=== PATIENT | male | born 1950 | race Caucasian/White ===

== ENCOUNTER 2019-07-04 08:54 | Inpatient (IN) ==
[2019-07-04] MEDS ORDERED: 0.9 % Sodium Chloride 1,000 ML ONE (09:24)
[2019-07-04] MEDS ORDERED: *HR* Midazolam HCl 2 MG/2 ML VIAL ONE (09:24)
[2019-07-04] MEDS ORDERED: *HR* FentaNYL (PF) 100 MCG/2 ML VIAL ONE (09:24)
[2019-07-04] MEDS ORDERED: Tirofiban 12.5 MG/250ML 12.5 MG/250 ML BAG ONE (09:24)
[2019-07-04] MEDS ORDERED: Heparin 1,000 UNITS/500 mL 500 ML ONE (09:25)
[2019-07-04] MEDS ORDERED: *HR* Heparin 10,000 UNIT/10 ML VIAL ONE (09:25)
[2019-07-04] MEDS ORDERED: Iopamidol 125 ML INFUS..BTL ONE (09:25)
[2019-07-04] MEDS ORDERED: Nitroglycerin 1,000 MCG/10 ML VIAL IV ONE (09:25)
--- NOTE | 2019-07-04 09:30 | Pre-Sedation Evaluation ---
Pre-sedation evaluation - Pre-sedation checklist Date of procedure: 07/04/19 Procedure: [facility] Recent Vitals: vs as documented in emr H&P (including ROS) documented in medical record: Yes Previous reaction to sedatives/anesthetics: No Dietary Status: unknown Airway Assessment: Patient can open mouth completely, TMJ function normal ASA Classification *see protocol: CLASS V-Morbid complications, operation only hope of survival, [id number] to any of the above to indicate emergent Plan of Care: Pt appropriate candidate for procedure/moderate/conscious sedation, Risks/benefits of procedure/sedation discussed w/ patient/family, If not NPO; Risk of intake outweiged by necessity to perform procedure Cardiac Registry (Cardio Only) - Functional Capacity Functional Capacity: >=4 METS with symptoms - Clincal Frailty Scale Clinical Frailty Scale: Managing Well
--- NOTE | 2019-07-04 10:16 | Cardiology History & Physical ---
Date of Encounter: 07/04/19 Time of Encounter: 09:40 Assessment and Plan (1) ST elevation myocardial infarction (STEMI) Status: Acute Anterior current of injury. STEMI. A/R/B of emergent [facility] dw patient including 1% chance of recurrent MT//CVA/CABG/bleeding/ALANNA/contrast reaction. Pt aware and agreeable with plan. EF assessment to be completed. DAPT. Heparin. The assessment and plan as outlined above was discussed with the patient and/or family members who expressed understanding and agreement. All questions were answered. Qualifiers: Involved coronary artery: LAD coronary artery Qualified Code(s): I21.02 - ST elevation (STEMI) myocardial infarction involving left anterior descending coronary artery (2) HTN (hypertension) Status: Acute antiHTN The assessment and plan as outlined above was discussed with the patient and/or family members who expressed understanding and agreement. All questions were answered. Qualifiers: Hypertension type: essential hypertension Qualified Code(s): I10 - Essential (primary) hypertension History of Present Illness Chief complaint: chest pain HPI: Mr. Pearson is a 68 year old male with no previous cardiac history presents with 10/10 chest pain, retrosternal, starting approximately 5am arrived at [place] with finding of anterior STEMI. Aspirin, NTG, brilinta given but no significant change in symptoms. It was associated with mild dyspnea. He was transferred here emergently. Past Med Surg Social Fam HX - Past Medical History Medical history: diabetes, hypertension Psychiatric history: no psych history - Past Surgical History Surgical History: cataract - Social History Smoking Status: Never smoker Smokeless Tobacco Status: No Alcohol use: occasionally Drug use: none Medications and Allergies Allergy/AdvReac Type Severity Reaction Status Date / Time No Known Allergies Allergy Verified 07/04/19 08:43 All Systems Review: The remainder of the systems were reviewed and are negative - Constitutional Constitutional: no chills, no fever(s) - EENT Eyes: no blurred vision, no loss of vision Nose, mouth and throat: no mouth pain, no odynophagia - Cardiovascular Cardiovascular: chest pain at rest, chest pain with exertion - Respiratory Respiratory: no hemoptysis, no wheezing - Gastrointestinal Gastrointestinal: no hematemesis, no hematochezia - Genitourinary Genitourinary: no hematuria, no nocturia - Musculoskeletal Musculoskeletal: no abnormal gait, no arthralgias - Integumentary Integumentary: no rash, no unusual bruising - Neurological Neurological: no syncope, no tingling - Psychiatric Psychiatric: no hallucinations, no panic attacks - Hematological/Lymphatic Hematologic/Lymphatic: no easy bleeding, no easy bruising Physical Examination General: Conversant, Other (mild distress) HEENT: Atraumatic Neck: No JVD Cardiac: Reg Rate and Rhythm Lungs: Normal Breath Sounds Neuro: Alert and responsive Abdomen: Soft Skin: No rashes noted on visualized skin Musculoskeletal: No Chest Wall Tenderness Extremities: No Edema Results - EKG Interpretation EKG results cardiology: sinus rhythm (anterior current of injury)
[2019-07-04] MEDS ORDERED: Morphine Sulfate 2 MG/ML SYRINGE IVP PRN (10:20)
[2019-07-04] MEDS ORDERED: Ondansetron 4 MG/2 ML VIAL IVP PRN (10:20)
[2019-07-04] MEDS ORDERED: Dextrose Gel 15 GM/37.5 ML TUBE PO PRN ×2 (10:26)
[2019-07-04] MEDS ORDERED: *HR* Dextrose 50 % in Water (Syg) 50 ML SYRINGE IVP PRN (10:26)
[2019-07-04] MEDS ORDERED: D5% in Water 1,000 ML IVC PRN (10:26)
[2019-07-04] MEDS ORDERED: Tirofiban 12.5 MG/250ML 12.5 MG/250 ML BAG IVC SCH (10:30)
--- NOTE | 2019-07-04 10:36 | Invasive Diagnostic Lab Proc ---
Name: Everton Pearson V Date of Study: 07/04/2019 Date: 1950 Ht: 72.8in Medical Record#: [id number] Age: 68 Wt: 220.46lb Gender: Male BSA: 2.24 Order #: [id number] BMI: 29.22 Physicians Procedure Physician: Leonard Joshi MD, FACC Referring MD: Referring MD: Staff Name Position Time In Annika Washington RT Monitor 09:37 AM Cecilia Benjamin RT (R) Scrub 09:37 AM Christopher Luna RN Feeder Tender 09:37 AM Indications Indication STEMI Procedures Performed Procedure L HRT ARTERY/VENTRICLE ANGIO PRQ CARD REVASC NM 1 VSL Pre-Procedure Checklist Informed consent is complete signed and on chart. H&P is on chart. ID band is on and ID verified with patient. Patient NPO for procedure The procedure was described for the patient and questions were answered. Blood Pressure: 142/90 ECG is on chart. Rhythm: STEMI Plan of Care Patient will tolerate the procedure without complications. Adequate level of comfort will be maintained. Hemodynamics will remain stable Patient will recover from procedure without complications. Respiratory function will be maintained. Cardiac rhythm will remain stable. Patient temperature will be maintained. Patient and/or family have verbalized understanding of the procedure. Patient Education Chief Complaint/Reason for Test: Cardiac Cath Developmental Category: Geriatric (65+ years) Developmentally Appropriate for Age: Yes Learning Barriers: None Education Needs: Procedure Education Method: Verbal Information Taught: Cardiac Cath Educational Evaluation: Able to repeat information Intravenous Access Time IV Size Location DC'd Fluid/Drip Rate Units RN 09:31 AM 18g 1 1/4" Patent On Arrival Lt Antecubital 09:32 AM 18g 1 1/4" Patent On Arrival Rt Antecubital Allergies No Known Allergies Vital Signs Time BP (mmHg) HR (bpm) O2 Sat. RR (bpm) LOC 09:41 AM 142 / 90 78 100 % 18 5 = Fully awake and oriented or at pre-proc level 09:39 AM / % 4 = Oriented but drowsy 09:54 AM / % 4 = Oriented but drowsy 09:41 AM 142 / 90 81 % 11 09:45 AM 131 / 78 77 100 % 17 09:50 AM 123 / 77 127 97 % 23 09:55 AM 111 / 70 85 98 % 25 10:00 AM 116 / 66 73 98 % 16 10:05 AM 115 / 64 72 99 % 29 10:10 AM 112 / 65 72 100 % 15 Procedural Medications Time Medication Dose Units Method Given By 09:38 AM Oxygen 2 L/min nasal cannula Christopher Luna RN 09:42 AM Versed 2 mg Intravenous Christopher Luna RN 09:42 AM Fentanyl 50 mcg Intravenous Christopher Luna RN 09:45 AM Lidocaine 2% 1 ml Subcutaneous Leonard Joshi MD, FACC 09:46 AM Heparin 2000 units Nitroglycerin 200 mcg Verapamil 2.5 mg Intraarterial Leonard Joshi MD, FACC 09:50 AM Aggrastat Bolus: 50 ml Intravenous Christopher Luna RN 09:50 AM Aggrastat 12.5mg/250ml 18 ml/hr Intravenous Christopher Luna RN 09:58 AM Nitroglycerin 100 mcg Intracoronary Leonard Joshi MD Marlon Score Preprocedure Postprocedure Activity 2- Moves 4 extremities sustained head lift Activity 2- Moves 4 extremities sustained head lift Circulation 2- SBP +/= 20 points of pre-anesthetic level Circulation 2- SBP +/= 20 points of pre-anesthetic level Consciousness 2- Awake and alert oriented x 3 Consciousness 2- Awake and alert oriented x 3 O2 Saturation 2- Able to maintain O2 satruation of 92% on room air O2 Saturation 2- Able to maintain O2 satruation of 92% on room air Respiratory 2- Able to deep breathe and cough well Respiratory 2- Able to deep breathe and cough well Total Score 10 Total Score 10 Contrast Agent: Isovue Diagnostic Contrast: 106 ml Total Contrast: 106 ml Fluoro Dose: 21 mGy Procedure Log Time Note Enter By 09:37 AM 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 Bilateral groin prepped with Chloraprep by Annika Washington, then patient was draped. Skin intact. :37 AM Physican responded and notified patient is ready 09:37 09:37 AM Physician arrived 09:37 :37 AM Meet and greet completed :37 AM Sign in performed according to hospital policy. Informed consent was obtained. :37 AM Procedure start :37 :38 AM Time: :38 Oxygen on at 2 L/min per nasal cannula by Christopher Luna RN :39 AM Time: :38 Patient comfortable and pain free: Yes :39 AM Time: :39LOC: 5 = Fully awake and oriented or at pre-proc level kkall:39 AM Vitals capture started with the following parameters, Patient=Adult, Interval=5 min, Initial Cvylhxia=969 mmHg, Deflation Rate=3 mmHg, Cuff placed on Right Arm 09:40 AM critical Trop called in by Rowdy Ed 0.08 09:41 AM HR=81 bpm, GKZG=419/90 mmhg, Resp=11 B/min 09:42 AM Time: 09:42 Versed 2 mg Intravenous Given by Christopher Luna RN :42 AM Time: 09:42 Fentanyl 50 mcg Intravenous Given by Christopher Luna RN :45 AM HR=77 bpm, UANE=482/78 mmhg, TtT7=992.0 %, Resp=17 B/min 09:45 AM Time out was performed according to hospital policy. Conscious sedation and anesthesia was achieved (see medication log with in this report above) :45 AM Time: 09:45 1 ml Lidocaine 2% to right radial Subcutaneous Given by Leonard Joshi MD, FACC 09:46 AM Pressure channel 1 zeroed. 09:46 AM Access obtained by percutaneous puncture. 6Fr 10cm Terumo Glidesheath sheath placed in right Radial artery. [id number] all 09:46 AM Time: 09:46 Patient given 2000 units Heparin, 200 mcg Nitroglycerin, and 2.5 mg Verapamil Intraarterial by Leonard Joshi MD, [facility]. This is given to reduce risk of vessel spasm and thrombosis. kk 09:47 AM 6Fr CLS 3.0 Runway guide catheter was used to cannulate the PCI vessel successfully. reused? No kkner 09:48 AM wire removed 09:49 AM LCA angiography performed in multiple views. [email or web address] 09:50 AM CZ=231 bpm, MHJG=806/77 mmhg, SpO2=97.0 %, Resp=23 B/min 09:50 AM .014 PT Graphix 182cm guide wire across target lesion- successful. reused? No 09:50 AM Time: 09:50 Aggrastat Bolus: 50 ml Intravenous Given by Christopher Luna RN Deleon pump 09:51 AM Time: 09:50 Aggrastat 12.5mg/250ml 18 ml/hr Intravenous Given by Christopher Luna RN Deleon pump 09:51 AM 2.0 mm x 15 mm Emerge Monorail balloon across target lesion- successful. reused? No 09:52 AM Balloon inflated @ 14 brooke for 8 seconds 09:53 AM Recorded Pressure: Ao, YG=829, Condition=Condition 1 (Aorta) Ao 104/76/88 09:53 AM Balloon inflated @ 14 brooke for 10 seconds 09:54 AM Time: 09:39 Patient comfortable and pain free: Yes 09:54 AM Time: 09:39LOC: 4 = Oriented but drowsy kkall 09:54 AM Lesion found in Mid LAD. Pre Stenosis: 100 Pre ROSCOE Flow: 0: No Flow/No perfusion all 09:55 AM HR=85 bpm, RVHK=774/70 mmhg, SpO2=98.0 %, Resp=25 B/min 09:55 AM Pressure channel 1 zeroed. 09:56 AM 3.0mm x 32mm Synergy drug-eluting stent across target lesion- successful Lot [id number] all 09:57 AM Stent deployed @ 14 brooke for 23 seconds kkall 09:58 AM Time: 09:58 Nitroglycerin 100 mcg Intracoronary Given by Leonard Joshi MD 09:59 AM Stent delivery system removed intact. all 09:59 AM Recorded Pressure: Ao, HR=74, Condition=Condition 1 (Aorta) Ao 106/73/89 10:00 AM HR=73 bpm, SSPM=183/66 mmhg, SpO2=98.0 %, Resp=16 B/min 10:00 AM 3.5 mm x 15mm NC Emerge balloon across target lesion- successful. reused? No [email or web address] 10:01 AM Balloon inflated @ 14 brooke for 25 seconds kkallner 10:01 AM Balloon inflated @ 14 brooke for 8 seconds kkallner 10:02 AM Balloon inflated @ 18 brooke for 12 seconds kkallner 10:02 AM Coronary Dominance: right kkallner 10:02 AM Balloon inflated @ 18 brooke for 14 seconds kkallner 10:03 AM Guide wire removed intact. kkallner 10:03 AM Balloon catheter removed intact. kkallner 10:04 AM Guide catheter removed intact. kkallner 10:04 AM 5Fr TIG catheter inserted over the wire [facility] kkallner 10:04 AM wire removed kkallner 10:05 AM HR=72 bpm, HLCC=292/64 mmhg, SpO2=99.0 %, Resp=29 B/min 10:05 AM Recorded Pressure: Ao, HR=72, Condition=Condition 1 (Aorta) Ao 103/76/88 10:06 AM RCA angiography performed in multiple views. [email or web address] 10:06 AM Catheter removed kkallner 10:06 AM Lesion found in Distal Circumflex. Pre Stenosis: 20 Pre ROSCOE Flow: [email or web address] 10:07 AM Lesion found in Distal RCA. Pre Stenosis: 20 Pre ROSCOE Flow: kkallner 10:07 AM Lesion found in Mid RCA. Pre Stenosis: 20 Pre ROSCOE Flow: kkallner 10:07 AM 5Fr Pigtail catheter inserted over the wire [facility] kkallner 10:08 AM pig removed kkallner 10:09 AM Time: 09:54 Patient comfortable and pain free: Yes kkallner 10:09 AM Time: 09:54LOC: 4 = Oriented but drowsy kkallner 10:09 AM 5Fr Pigtail 145 catheter inserted over the wire [id number] kkallner 10:09 AM wire removed kkallner 10:09 AM Catheter crossed the aortic valve and was selectively placed in the left ventricle. Pressures recorded on pullback for left heart catheterization. kkallner 10:10 AM HR=72 bpm, OSGX=106/65 mmhg, HnR6=277.0 %, Resp=15 B/min 10:10 AM Bolus angiogram of left Ventricle complete: 10 ml/sec for a total of 20 mls kkallner 10:10 AM Recorded Pressure: LV, Ao, HR=73, Condition=Condition 1 (Left Ventricle) LV 113/15/46, (Aorta) Ao 113/62/84 10:11 AM Procedure completed at 10:11 07/04/2019 kkallner 10:11 AM Did you address ROSCOE flow and Dominance? YesCoronary Dominance: right kkallner 10:13 AM Sign out completed: Radiation Dose 182.75 , 20.8 Gy/cm2 Fluoro Time: 6.6 Isovue 370 - 200ml contrast 106 ml given by Leonard Joshi MD, [facility]. Complications: None. 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 Sedation minutes 29. Cardiac Rehab Consult needed: Yes. Confirmed administered medications: Yes kkallner 10:13 AM Isovue 370 - 200ml,1 Bottle(s) used. kkallner 10:14 AM Arterial sheath pulled, Vasc Band closure device used and was Successful S/N. kkallner 10:14 AM 11 ml air in Vasc Band. kkallner 10:14 AM Estimated Blood Loss: minimal kkallner 10:14 AM Post ECG NSR kkallner 10:15 AM Post Blood Pressure 112/65 kkallner 10:15 AM Information taught Cardiac Cath, PCI, and Vasc Band kkallner 10:15 AM Education needs Procedure, Plan of Care, and Responsibilities of Patient in Care kkallner 10:15 AM Learning barriers :None kkallner 10:15 AM Education Methods Verbal kkallner 10:15 AM Education evaluation Able to repeat information kkallner 10:15 AM Site status No bleeding/ No Hematoma - Rt Wrist as reported by Cecilia Benjamin RT (R) at 10:15 kkallner 10:15 AM Plavix, Effient or Brilinta given No kkallner 10:15 AM Delay to floor No kkallner 10:16 AM Patient out of room: 10:16 kkallner 10:16 AM Family placed in consult room. kkallner 10:16 AM Complications: None kkallner 10:16 AM Lesion found in Distal LAD. Pre Stenosis: 50 Pre ROSCOE Flow: kkallner 10:24 AM Report given to Zuleima CALLOWAY Pt taken to ICU Room #4. 10:24 chavo Complications Complication None None Hemodynamics Pressures Site Systolic/A Wave Diastolic/V Wave Mean AO 104 76 88 AO 106 73 89 AO 103 76 88 LV 113 15 46 AO 113 62 84 Post Procedure Information Blood Pressure: 112/65 mmHg Rhythm: NSR Post procedural instructions were given Site Checks Time Location Status Staff Sheath In? Note 10:15 AM Rt Wrist No bleeding/ No Hematoma Cecilia Benjamin RT (R) Pulses Time Site Pre-Procedure Post-Procedure Note 07/04/2019 10:18:00 AM Bilateral DP 2+ 07/04/2019 10:18:00 AM Bilateral PT 1+ 07/04/2019 10:18:00 AM Bilateral radial 2+ Updated by RT Vin (R) on 07/04/2019 10:27:10 AM electronically signed on 07/04/2019 10:27:54 AM with status of Final
[2019-07-04] MEDS: Insulin LISPRO 300 UNITS/3 ML VIAL SQ SCH ×2 (13:04→19:53)
[2019-07-04] MEDS ORDERED: Perflutren Lipid Microsphere 1.3 ML in 0.9 % Sodium Chloride 8.7 ML IVP ONE (13:32)
[2019-07-04] MEDS ORDERED: Perflutren Lipid Microsphere 2 ML VIAL ONE (13:33)
--- NOTE | 2019-07-04 18:35 | Electrocardiograph Report ---
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
[2019-07-04] MEDS ORDERED: Insulin LISPRO 300 UNITS/3 ML VIAL SQ SCH (21:00)
[2019-07-04] MEDS: *HR* Ticagrelor 90 MG TABLET PO SCH (22:19)
[2019-07-05 04:31] LABS: Basophils % 0.3 %; Eosinophils # 0.1 K/mcL (0.0-0.6); Eosinophils % 0.6 %; Hematocrit 39.2 % (37.5-50.1); Hemoglobin 12.6 g/dL (12.9-16.9); Immature Granulocytes % 0.3 % (0-4); Lymphocytes # 2.1 K/mcL (0.6-4.6); Lymphocytes % 13.3 %; Mean Corpuscular HGB Conc 32.1 g/dL (31.6-35.5); Mean Corpuscular Hemoglobin 27.7 pg (28.0-33.3); Mean Corpuscular Volume 86.2 fL (83.0-100.0); Mean Platelet Volume 10.6 fL (9.4-12.4); Monocytes # 1.4 K/mcL (0.0-1.3); Monocytes % 8.8 %; Platelet Count 260 K/mcL (140-400); Red Blood Count 4.55 M/mcL (4.19-5.50); Red Cell Distribution Width 13.9 % (11.5-14.5); Segmented Neutrophils % 76.7 %; White Blood Count 15.6 K/mcL (4.3-11.1)
[2019-07-05 04:50] LABS: BUN/Creatinine Ratio 13 (6-26); Blood Urea Nitrogen 10 mg/dL (8-23); Calcium 8.8 mg/dL (8.6-10.3); Carbon Dioxide 22 mEq/L (23-29); Chloride 108 mEq/L (98-107); Glucose 130 mg/dL (70-105); Osmolality,Calculated 287 (280-300); Potassium 3.7 mEq/L (3.5-5.1); Sodium 138 mEq/L (136-145); eGFR For African Americans > 60 (> 60); eGFR For Non-African Americans > 60 (> 60)
[2019-07-05] MEDS: Insulin LISPRO 300 UNITS/3 ML VIAL SQ SCH ×3 (08:40→15:55)
[2019-07-05] MEDS: *HR* Ticagrelor 90 MG TABLET PO SCH ×2 (08:52→21:07)
[2019-07-05] MEDS ORDERED: Aspirin 81 MG TAB.CHEW PO SCH (09:00)
[2019-07-05] MEDS ORDERED: Metoprolol XL (24 HR) Succ 25 MG TAB.ER.24H PO SCH (09:00)
--- NOTE | 2019-07-05 09:58 | Cardiology Progress Note ---
Date of Encounter: 07/05/19 Time of Encounter: 08:30 Assessment and Plan (1) ST elevation myocardial infarction (STEMI) Current Visit: No Status: Acute Per cardiology: -Admitted with anterior STEMI s/p emergent LHC with DEN to mid LAD. Has remaining mild CAD. -TTE with LVEF 35-40% with SWMA. -On asa, brilinta, statin, BB. -Right radial access site without ecchymosis or hematoma. -Currently chest pain free. -Leukocytosis noted today, suspect reactionary. -Continue dual anti-platelet therapy uninterrupted for at least one year, states understanding. -Will transfer out of ICU today. -Patient questioning about returning to work. 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 Educated on no work until seen by cardiology outpatient. -Anticipate discharge home in am. Qualifiers: Involved coronary artery: LAD coronary artery Qualified Code(s): I21.02 - ST elevation (STEMI) myocardial infarction involving left anterior descending coronary artery (2) Ischemic cardiomyopathy Current Visit: Yes Status: Acute Per cardiology: -ICM noted, LVEF 35-40% with SWMA. -Euvolemic on exam. -On BB. -Will start long acting BB. -Will add nacho inhibitor. -PLan for repeat TTE in outpatient setting after 45 days. (3) HTN (hypertension) Current Visit: No Status: Acute Per cardiology: -Known HTN. -ON BB, nacho inhibitor. -Will continue to monitor and titrate meds as needed. Qualifiers: Hypertension type: essential hypertension Qualified Code(s): I10 - Essential (primary) hypertension Discussion w patient/family: The assessment and plan as outlined above was discussed with the patient who expressed understanding and agreement. All questions were answered. Thank you for involving us in the care of your patient. Please call with any questions. Discussed and reviewed with . Subjective Principal diagnosis: STEMI Interval history: Patient reports he feels well today. Denies current chest pain. Objective Vital Signs, Last 4 Hours Temp Pulse Resp BP Pulse Ox 07/05/19 08:00 87 22 141/84 93 07/05/19 07:26 99.0 F 07/05/19 07:00 89 22 141/84 93 07/05/19 06:00 75 16 128/79 94 General: Conversant, No Apparent Distress HEENT: Atraumatic, Normocephaly, Mucus Membranes Moist Neck: No JVD, Normal carotid pulses Cardiac: Reg Rate and Rhythm, Normal S1 and S2, No Murmur Lungs: Normal Breath Sounds, No Wheeze, Rales, Rhonchi Neuro: Alert and responsive, No focal deficits noted Abdomen: Soft, Non-Tender Skin: No rashes noted on visualized skin, Other (Right radial access site without ecchymosis or hematoma. ) Musculoskeletal: No Chest Wall Tenderness Extremities: No Clubbing, No Cyanosis, No Edema, Normal Pulses Results 07/05/19 03:42 07/05/19 03:42 Lab Results Impressions Echocardiogram 07/04/19 13:04 Impressions: LVEF 35-40%. Normal LV chamber size, wall thickness. Segmental left ventricular systolic dysfunction. Moderate left ventricular diastolic dysfunction. Atypical septal motion consistent with bundle branch block. Normal right ventricular structure and function. Mild mitral regurgitation. No evidence of pulmonary hypertension. Left Ventricular Wall Motion: Rest Echo Findings The apex, apical inferior, apical anterior, apical septal, apical lateral and mid anterior septal blank were hypokinetic. All other wall segments showed normal motion. Findings: Study Quality * Technically adequate exam. ECG Findings * Sinus rhythm with BBB. Left Ventricle * LVEF 35-40%. * Normal LV chamber size, wall thickness. * Segmental left ventricular systolic dysfunction. * Moderate left ventricular diastolic dysfunction. * Atypical septal motion consistent with bundle branch block. Right Ventricle * Normal right ventricular structure and function. Left Atrium * Mildly dilated left atrium. Right Atrium * Mildly dilated right atrium. Interatrial Septum * No evidence of a PFO by color Doppler. Aortic Valve * Trileaflet aortic valve. * Mildly sclerotic aortic valve leaflets. * No aortic regurgitation. * No aortic stenosis. Mitral Valve * Mild mitral annular calcification * Mild mitral regurgitation. * No mitral stenosis. Tricuspid Valve * Normal tricuspid valve structure and function. * Trace tricuspid regurgitation. * No evidence of pulmonary hypertension. Pulmonic Valve * Pulmonic valve is not well visualized. * No pulmonic regurgitation. Aorta * Normally sized aortic root. Pericardium * There is a trivial pericardial effusion present. IVC * Normal IVC dimensions and inspiratory collapse. Pulmonary Artery * Pulmonary artery not well visualized. Active Medications Acetaminophen (Tylenol) 500 mg PO Q6HR PRN PRN Reason: Mild Pain Stop: 01/03/20 10:21 Last Admin: 07/05/19 08:51 Dose: 500 mg Documented by: Aspirin (Aspirin) 81 mg PO DAILY [facility] Stop: 01/04/20 09:01 Last Admin: 07/05/19 08:52 Dose: 81 mg Documented by: Dextrose/Water (Dextrose 50% (Syg)) 25 ml IVP AD PRN PRN Reason: Hypoglycemia Stop: 01/03/20 10:27 Diphenhydramine HCl (Benadryl) 25 mg PO HS PRN PRN Reason: Insomnia Stop: 01/03/20 10:27 Last Admin: 07/04/19 22:18 Dose: 25 mg Documented by: Glucagon (Glucagen) 1 mg IM ONCE PRN PRN Reason: Hypoglycemia Stop: 01/03/20 10:27 Glucose (Gluctose) 15 gm PO ONCE PRN PRN Reason: Hypoglycemia Stop: 01/03/20 10:27 Glucose (Gluctose) 30 gm PO ONCE PRN PRN Reason: Hypoglycemia Stop: 01/03/20 10:27 Dextrose (Dextrose 5%) 1,000 mls @ 100 mls/hr IVC .Q10H PRN PRN Reason: HYPOGLYCEMIA Stop: 01/03/20 10:27 Insulin Human Lispro (Humalog) 0 units SQ HS [facility]; Protocol Stop: 01/03/20 21:01 Last Admin: 07/04/19 22:25 Dose: Not Given Documented by: Insulin Human Lispro (Humalog) 0 units SQ TIDAC [facility]; Protocol Stop: 01/03/20 11:31 Last Admin: 07/05/19 08:40 Dose: Not Given Documented by: Lisinopril (Zestril) 2.5 mg PO DAILY [facility]; Protocol Stop: 01/04/20 09:01 Last Admin: 07/05/19 08:51 Dose: 2.5 mg Documented by: Metoprolol Succinate (Toprol Xl) 25 mg PO DAILY [facility] Stop: 01/04/20 09:01 Last Admin: 07/05/19 08:52 Dose: 25 mg Documented by: Morphine Sulfate (Morphine) 4 mg IVP Q3H PRN PRN Reason: Severe Pain (7-10) Stop: 01/03/20 10:21 Non-Formulary Medication (Gabapentin [Neurontin]) 600 mg PO BID [facility] Stop: 01/04/20 10:01 Ondansetron HCl (Zofran) 4 mg IVP Q8HR PRN PRN Reason: Nausea And Vomiting Stop: 01/03/20 10:21 Rosuvastatin Calcium (Crestor) 40 mg PO HS [facility] Stop: 01/03/20 21:01 Last Admin: 07/04/19 22:19 Dose: 40 mg Documented by: Ticagrelor (Brilinta) 90 mg PO BID [facility] Stop: 01/03/20 21:01 Last Admin: 07/05/19 08:52 Dose: 90 mg Documented by: Laboratory Tests 07/05/19 07/05/19 03:42 03:42 WBC 15.6 H Hgb 12.6 L Creatinine 0.76 - Imaging and Cardiology Chest Xray: report reviewed Echo: report reviewed Cardiac cath: report reviewed Consult Discharge Plan - Plan Referrals: Mami Buck, [employer] SULFATE OPERATOR [Primary Care Provider] -
[2019-07-05] MEDS ORDERED: Gabapentin 300 MG CAPSULE PO SCH (10:00)
[2019-07-05] MEDS ORDERED: Dextrose Gel 15 GM/37.5 ML TUBE PO PRN ×2 (10:50)
[2019-07-05] MEDS ORDERED: D5% in Water 1,000 ML IVC PRN (10:50)
[2019-07-05] MEDS ORDERED: *HR* Dextrose 50 % in Water (Syg) 50 ML SYRINGE IVP PRN (10:50)
[2019-07-05] MEDS ORDERED: Ondansetron 4 MG/2 ML VIAL IVP PRN (10:50)
--- NOTE | 2019-07-05 16:20 | Electrocardiograph Report ---
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
[2019-07-05] MEDS: *HR* Heparin 5,000 UNIT/ML VIAL SQ SCH (17:53)
[2019-07-05] MEDS ORDERED: Insulin LISPRO 300 UNITS/3 ML VIAL SQ SCH (21:00)
[2019-07-05] MEDS: Gabapentin 300 MG CAPSULE PO SCH (21:07)
[2019-07-06] MEDS: *HR* Heparin 5,000 UNIT/ML VIAL SQ SCH (05:50)
[2019-07-06] MEDS: Insulin LISPRO 300 UNITS/3 ML VIAL SQ SCH (07:28)
[2019-07-06] MEDS: Gabapentin 300 MG CAPSULE PO SCH (08:52)
[2019-07-06] MEDS: *HR* Ticagrelor 90 MG TABLET PO SCH (08:53)
[2019-07-06] MEDS ORDERED: Aspirin 81 MG TAB.CHEW PO SCH (09:00)
[2019-07-06] MEDS ORDERED: Metoprolol XL (24 HR) Succ 25 MG TAB.ER.24H PO SCH (09:00)
[2019-07-06 09:16] LABS: Basophils % 0.3 %; Eosinophils # 0.1 K/mcL (0.0-0.6); Eosinophils % 0.9 %; Hematocrit 37.9 % (37.5-50.1); Hemoglobin 12.5 g/dL (12.9-16.9); Immature Granulocytes % 0.4 % (0-4); Lymphocytes % 14.5 %; Mean Corpuscular Hemoglobin 28.3 pg (28.0-33.3); Mean Corpuscular Volume 85.7 fL (83.0-100.0); Mean Platelet Volume 10.5 fL (9.4-12.4); Monocytes # 1.5 K/mcL (0.0-1.3); Monocytes % 10.8 %; Neutrophils # 10.1 K/mcL (1.6-8.9); Platelet Count 236 K/mcL (140-400); Red Blood Count 4.42 M/mcL (4.19-5.50); Segmented Neutrophils % 73.1 %; White Blood Count 13.8 K/mcL (4.3-11.1)
[2019-07-06 09:36] LABS: BUN/Creatinine Ratio 14 (6-26); Blood Urea Nitrogen 12 mg/dL (8-23); Calcium 8.7 mg/dL (8.6-10.3); Carbon Dioxide 24 mEq/L (23-29); Chloride 105 mEq/L (98-107); Glucose 124 mg/dL (70-105); Osmolality,Calculated 287 (280-300); Potassium 3.7 mEq/L (3.5-5.1); Sodium 138 mEq/L (136-145); eGFR For African Americans > 60 (> 60); eGFR For Non-African Americans > 60 (> 60)
--- NOTE | 2019-07-06 11:05 | Discharge Summary ---
- NOTES TO OUTPATIENT PROVIDER Notes to Outpatient Provider: Admitted with STEMI. Underwent emergent LHC with PCI. Date of Encounter: 07/06/19 Time of Encounter: 11:01 - Discharge Diagnosis (1) ST elevation myocardial infarction (STEMI) Priority: Primary Status: Acute Comments: Admitted with STEMI Qualifiers: Involved coronary artery: LAD coronary artery Qualified Code(s): I21.02 - ST elevation (STEMI) myocardial infarction involving left anterior descending coronary artery (2) Ischemic cardiomyopathy Priority: Secondary Status: Acute Comments: ICM (3) HTN (hypertension) Priority: Secondary Status: Acute Comments: Known HTN. Qualifiers: Hypertension type: essential hypertension Qualified Code(s): I10 - Essential (primary) hypertension - Hospital Course Hospital course: Mr. Pearson is a 68 year old male who was admitted with STEMI, underwent emergent LHC with PCI to LAD. TTE was performed and LVEF 35-40%, SWMA. On asa, brilinta, statin, BB, nacho inhibitor. Educated on dual anti-platelet therapy uninterrupted for at least one year, states understanding. Right radial access site without hematoma or ecchymosis, radial access site management education reviewed with patient. Risk factor modification stressed with patient. With cardiomyopathy, recommend repeat TTE in 45 days. Patient is euvolemic on exam. Brilinta assistance card given to patient. Patient and family educated to call cardiology for any issues at pharmacy. Patient will follow with [facility], follow up set. Of note, patient educated not to work until seen by cardiology outpatient. - Time Spent with Patient Total time spent providing and/or coordinating discharge services: Less than 30 minutes - Discharge Medications Prescriptions: New Aspirin 81 mg PO DAILY #30 tab.chew Ticagrelor [Brilinta] 90 mg PO BID #60 tablet Rosuvastatin [Crestor] 40 mg PO HS #30 tablet Metoprolol XL (24 HR) Succ [Toprol Xl] 25 mg PO DAILY #30 tab.er.24h Lisinopril [Zestril] 2.5 mg PO DAILY #30 tablet Continued Spironolactone [Aldactone] 25 mg PO DAILY Gabapentin [Neurontin] 600 mg PO BID Discontinued Rosuvastatin Calcium [Crestor] 5 mg PO DAILY Lisinopril [Zestril] 40 mg PO DAILY amLODIPine [Norvasc] 10 mg PO DAILY Home Medications: Gabapentin [Neurontin] 600 mg PO BID 07/04/19 [History] Spironolactone [Aldactone] 25 mg PO DAILY 07/04/19 [History] Aspirin 81 mg PO DAILY #30 tab.chew 07/06/19 [Rx] Lisinopril [Zestril] 2.5 mg PO DAILY #30 tablet 07/06/19 [Rx] Metoprolol XL (24 HR) Succ [Toprol Xl] 25 mg PO DAILY #30 tab.er.24h 07/06/19 [Rx] Rosuvastatin [Crestor] 40 mg PO HS #30 tablet 07/06/19 [Rx] Ticagrelor [Brilinta] 90 mg PO BID #60 tablet 07/06/19 [Rx] Allergies/Adverse Reactions: Allergy/AdvReac Type Severity Reaction Status Date / Time No Known Allergies Allergy Verified 07/04/19 08:43 Date of admission: 07/04/19 11:20 Primary care physician: Mami Buck Consults: 07/04/19 10:20 Consult to Cardiac Rehabilitation-Phase1 [CONS] Routine Comment: Reason for Consult: AMI Call Completed: Yes Consult to Nurse Navigator [CONS] Routine Comment: Discharging clinician: Bella Caruso Anticipated date of discharge: 07/06/19 Physical Examination Vital Signs Temperature 98.1 F 07/04/19 10:40 Pulse Rate 69 07/04/19 10:40 Respiratory Rate 15 07/04/19 10:40 Blood Pressure 120/75 07/04/19 10:40 O2 Sat by Pulse Oximetry 97 07/04/19 10:40 Temperature 99.9 F H 07/06/19 06:56 Pulse Rate 78 07/06/19 06:56 Respiratory Rate 17 07/06/19 06:56 Blood Pressure 127/68 07/06/19 06:56 O2 Sat by Pulse Oximetry 95 07/06/19 06:56 General: Conversant, No Apparent Distress HEENT: Atraumatic, Normocephaly, Mucus Membranes Moist Neck: No JVD, Normal carotid pulses Cardiac: Reg Rate and Rhythm, Normal S1 and S2, No Murmur Lungs: Normal Breath Sounds, No Wheeze, Rales, Rhonchi Neuro: Alert and responsive, No focal deficits noted Abdomen: Soft, Non-Tender Skin: No rashes noted on visualized skin, Other (Right radial access site without hematoma or ecchymosis. ) Musculoskeletal: No Chest Wall Tenderness Extremities: No Clubbing, No Cyanosis, No Edema, Normal Pulses - Patient Status Disposition: Home, Self-Care Condition: Good Functional capacity at discharge: independent ambulation Overall status at discharge: patient is progressing back to baseline - Discharge Instructions Follow Up With: Mami Buck CNP [Primary Care Provider] - 07/11/19 9:00 am (Apt made on 07/06/19.) Additional Instructions: RISK FACTORS: STOP SMOKING: If you smoke, STOP. Smoking or tobacco use significantly in creases your risk of heart disease because nicotine causes the arteries to narrow or constrict. It also causes fats to stick to the artery. Your chances of having a heart attack are greatly increased if you continue to smoke. For more information, call the education line for smoking cessation 0-262-EXQCBIQ EAT A LOW FAT/CHOLESTEROL/SODIUM DIET: This diet may help reduce your chances of having a heart attack. LIFTING: With affected extremity: Avoid bending, pushing off and lifting more than 2 pounds for 24 hours The following 48 hours, avoid lifting anything more than 5 pounds Avoid strenuous activity or repetitive motions ACTIVITY: You may walk or climb stairs as tolerated You can resume sexual activity as tolerated In general, you are encouraged to engage in a minimum of 30 minutes or more of moderate intensity physical activity, such as brisk walking, daily or at least 3-4 times weekly BATHING Do not submerge the site into water (bath tub, hot tub, swimming pool, dishes) for 1 week. This can be a source for infection into the blood stream. You may shower after 24 hours SITE CARE: After 24 hours, you may remove the dressing and leave the site open to air. Keep the site clean and dry. Clean gently and pat dry. You can expect bruising and tenderness that gradually resolve within a week or two. Return to work as instructed per your physician Resume driving as instructed per physician Keep all scheduled follow up appointments Resume medications as instructed IMPORTANT: If prescribed a Platelet Aggregation Inhibitor such as, Plavix, Brilinta or Effient: Duration of therapy is minimum one year These medications are often used in combination with Aspirin in prevention of future heart attacks Never discontinue unless consult with your Comber Setter STROKE (CVA) Risk factors for a stroke are: Age, cigarette smoking, diabetes, excessive alcohol consumption, family history, high blood pressure, overweight, physical inactivity, prior stroke, heart attack, diagnosis of carotid artery stenosis or other artery disease. Warning signs: Sudden numbness or weakness of the face, arm or leg; especially on one side of the body, sudden confusion, trouble speaking or understanding, sudden trouble seeing in one or both eyes, sudden trouble walking, dizziness, loss of balance or coordination, sudden severe headache with no cause. Call 911 or go to the Emergency Room. CONGESTIVE HEART FAILURE: If you have been diagnosed with Congestive Heart Failure (CHF) and your symptoms return, make an appointment with your physician Weigh yourself daily. Notify your physician if you have a weight gain of two or more pounds in one day or five or more pounds in one week. If you experience any difficulty breathing, please call 911 BLEEDING: Although the risk of bleeding is minimal, it can happen. If you have any bleeding from the site, apply firm pressure above the puncture site for 10-15 minutes. If the bleeding does not stop, continue manual pressure and call 911 CARDIAC REHABILITATION: If you have had a heart attack or cardiac stents placed, please ask your plater hot dip if Cardiac Rehabilitation is right for you. Cardiac Rehabilitation is recommended, beneficial to your health and can improve the following: stren gthen your heart, improve ejection fraction, weight reduction, decrease cholesterol levels, lower blood pressure, lower blood sugar, improve stamina and enhance self-image. If you have any questions please call [facility] at [phone]. Contact [facility] ( ) if: You develop a fever greater than 101 degrees Fahrenheit Your site becomes reddened or has any drainage You have an increase in pain or burning at the site or if a large knot forms at the site. If you experience chest pain, shortness of breath, dizziness, or extreme tiredness, stop the activity and rest. Please notify [facility] office if you experience any of these symptoms and they are not relieved by rest please call 911! - Diet and Activity Activity: increase activity as tolerated (Follow restrictions as above. ) Diet: low fat, low cholesterol, low salt diet
[2019-07-06 11:11] VITALS: BP 112/65
== END 2019-07-06 13:03 | disposition home or self-care (01) | DRG 247 ==
LOC: ICNU 11:20 → 2ANU 07-05 18:06
PROVIDERS: ADMIT Emergency Medicine; ATTEND Emergency Medicine

== ENCOUNTER 2019-11-20 21:42 | Inpatient (IN) ==
[2019-11-21] MEDS ORDERED: Aspirin 81 MG TAB.CHEW PO ONE (00:40)
[2019-11-21] MEDS ORDERED: Nitroglycerin 0.4 MG TAB.SUBL SL PRN (00:40)
[2019-11-21] MEDS ORDERED: Naloxone 0.4 MG/ML INJ IVP PRN (00:40)
[2019-11-21] MEDS ORDERED: D5% in Water 1,000 ML IVC PRN (00:46)
[2019-11-21] MEDS ORDERED: Dextrose Gel 15 GM/37.5 ML TUBE PO PRN ×2 (00:46)
[2019-11-21] MEDS ORDERED: *HR* Dextrose 50 % in Water (Syg) 50 ML SYRINGE IVP PRN (00:46)
[2019-11-21] MEDS ORDERED: Ipratropium/Albuterol Neb 3 ML IH PRN (00:47)
[2019-11-21] MEDS ORDERED: *HR* Heparin 5,000 UNIT/ML VIAL IVP PRN ×2 (01:03)
[2019-11-21] MEDS ORDERED: *HR* Heparin 5,000 UNIT/ML VIAL IVP ONE (01:03)
[2019-11-21] MEDS ORDERED: Heparin 25,000 UNIT/250 ML D5W 25,000 UNIT/250 ML IV.SOLN IVC SCH (01:15)
[2019-11-21 02:07] LABS: Basophils # 0.1 K/mcL (0.0-0.2); Basophils % 0.3 %; Eosinophils % 0.3 %; Hematocrit 39.3 % (37.5-50.1); Hemoglobin 12.8 g/dL (12.9-16.9); Immature Granulocytes % 0.3 % (0-4); Lymphocytes # 1.6 K/mcL (0.6-4.6); Lymphocytes % 10.3 %; Mean Corpuscular HGB Conc 32.6 g/dL (31.6-35.5); Mean Corpuscular Hemoglobin 25.2 pg (28.0-33.3); Mean Corpuscular Volume 77.5 fL (83.0-100.0); Mean Platelet Volume 10.5 fL (9.4-12.4); Monocytes # 1.6 K/mcL (0.0-1.3); Monocytes % 10.7 %; Neutrophils # 11.8 K/mcL (1.6-8.9); Platelet Count 240 K/mcL (140-400); Red Blood Count 5.07 M/mcL (4.19-5.50); Red Cell Distribution Width 16.7 % (11.5-14.5); Segmented Neutrophils % 78.1 %; White Blood Count 15.1 K/mcL (4.3-11.1)
[2019-11-21 02:08] LABS: INR 1.1; Prothrombin Time 12.2 Seconds (9.4-12.1)
[2019-11-21 02:25] LABS: Alanine Aminotransferase 12 Units/L (7-52); Albumin 4.1 g/dL (3.5-5.7); Albumin/Globulin Ratio 1.5 (1.1-2.2); Alkaline Phosphatase 68 Units/L (34-104); Aspartate Amino Transferase 17 Units/L (13-39); BUN/Creatinine Ratio 15 (6-26); Bilirubin,Total 0.6 mg/dL (0.3-1.0); Blood Urea Nitrogen 13 mg/dL (8-23); Calcium 8.7 mg/dL (8.6-10.3); Carbon Dioxide 24 mEq/L (23-29); Chloride 104 mEq/L (98-107); Globulin 2.7 g/dL (2.4-3.5); Glucose 125 mg/dL (70-105); Magnesium 1.6 mg/dL (1.6-2.6); Osmolality,Calculated 290 (280-300); Phosphorous 3.1 mg/dL (2.7-4.5); Sodium 139 mEq/L (136-145); Total Protein 6.8 g/dL (6.4-8.9); eGFR For African Americans > 60 (> 60); eGFR For Non-African Americans > 60 (> 60)
[2019-11-21 04:39] LABS: Bilirubin,Urine Negative (Negative); Blood,Urine Negative (Negative); Clarity,Urine Clear (Clear); Color,Urine Yellow (Yellow); Glucose,Urine (UA) Normal (Normal); Ketones,Urine Negative (Negative); Leukocyte Esterase,Urine Negative (Negative); Nitrite,Urine Negative (Negative); Protein,Urine Negative (Neg-Trace); Specific Gravity,Urine 1.023 (1.010-1.025); Urobilinogen,Urine Normal (Normal)
[2019-11-21] MEDS: Insulin LISPRO 300 UNITS/3 ML VIAL SQ SCH ×4 (06:38→20:43)
[2019-11-21] MEDS: Spironolactone 25 MG TABLET PO SCH (10:43)
[2019-11-21] MEDS: Metoprolol XL (24 HR) Succ 25 MG TAB.ER.24H PO SCH (10:43)
[2019-11-21 10:47] LABS: Estimated Average Glucose 140 mg/dl
[2019-11-21] MEDS: Gabapentin 300 MG CAPSULE PO SCH ×2 (10:47→21:28)
[2019-11-21] MEDS: Budesonide/Formoterol 80/4.5 1 PUFF INH IH SCH ×2 (10:51→20:11)
[2019-11-21] MEDS ORDERED: Perflutren Lipid Microsphere 1.3 ML in 0.9 % Sodium Chloride 8.7 ML IVP ONE (21:53)
[2019-11-22 04:20] LABS: Basophils % 0.4 %; Eosinophils # 0.4 K/mcL (0.0-0.6); Eosinophils % 3.5 %; Hematocrit 40.9 % (37.5-50.1); Hemoglobin 13.1 g/dL (12.9-16.9); Immature Granulocytes % 0.4 % (0-4); Lymphocytes # 2.1 K/mcL (0.6-4.6); Lymphocytes % 19.5 %; Mean Corpuscular Hemoglobin 25.3 pg (28.0-33.3); Mean Platelet Volume 10.6 fL (9.4-12.4); Monocytes # 1.4 K/mcL (0.0-1.3); Monocytes % 13.2 %; Neutrophils # 6.7 K/mcL (1.6-8.9); Platelet Count 235 K/mcL (140-400); Red Blood Count 5.18 M/mcL (4.19-5.50); Red Cell Distribution Width 16.6 % (11.5-14.5); White Blood Count 10.6 K/mcL (4.3-11.1)
[2019-11-22 04:39] LABS: BUN/Creatinine Ratio 15 (6-26); Blood Urea Nitrogen 14 mg/dL (8-23); Carbon Dioxide 24 mEq/L (23-29); Chloride 105 mEq/L (98-107); Glucose 95 mg/dL (70-105); Magnesium 1.8 mg/dL (1.6-2.6); Osmolality,Calculated 286 (280-300); Phosphorous 3.2 mg/dL (2.7-4.5); Potassium 3.9 mEq/L (3.5-5.1); Sodium 138 mEq/L (136-145); eGFR For African Americans > 60 (> 60); eGFR For Non-African Americans > 60 (> 60)
[2019-11-22 04:46] LABS: % Iron Saturation 8 % (20-55); Iron 23 mcg/dL (65-175); Transferrin 219 mg/dL (203-362)
[2019-11-22 04:58] LABS: Ferritin 192 ng/mL (20-250)
[2019-11-22] MEDS: Budesonide/Formoterol 80/4.5 1 PUFF INH IH SCH ×2 (07:26→20:34)
[2019-11-22] MEDS ORDERED: *HR* Heparin 5,000 UNIT/ML VIAL IVP ONE (09:32)
[2019-11-22] MEDS ORDERED: *HR* Heparin 5,000 UNIT/ML VIAL IVP PRN ×2 (09:32)
[2019-11-22] MEDS: Insulin LISPRO 300 UNITS/3 ML VIAL SQ SCH ×4 (09:55→20:28)
[2019-11-22] MEDS: Gabapentin 300 MG CAPSULE PO SCH ×2 (09:55→20:29)
[2019-11-22] MEDS: Metoprolol XL (24 HR) Succ 25 MG TAB.ER.24H PO SCH (09:55)
[2019-11-22] MEDS: Aspirin 81 MG TAB.CHEW PO SCH (09:55)
[2019-11-22] MEDS: Spironolactone 25 MG TABLET PO SCH (09:55)
[2019-11-22 09:59] LABS: Heparin anti-factor XA UFH < 0.04 IU/mL (0.30-0.70)
[2019-11-22 10:00] LABS: INR 1.1; Prothrombin Time 12.8 Seconds (9.4-12.1)
[2019-11-22] MEDS: Heparin 25,000 UNIT/250 ML D5W 25,000 UNIT/250 ML IV.SOLN IVC SCH ×2 (10:18→23:12)
[2019-11-23] MEDS ORDERED: Adenosine 90 MG/30 ML MLS IV ONE (07:51)
[2019-11-23] MEDS ORDERED: 0.9 % Sodium Chloride 1,000 ML ONE (08:17)
[2019-11-23] MEDS ORDERED: Tirofiban 12.5 MG/250ML 12.5 MG/250 ML BAG ONE (08:17)
[2019-11-23] MEDS: Aspirin 81 MG TAB.CHEW PO SCH (08:27)
[2019-11-23] MEDS: Spironolactone 25 MG TABLET PO SCH (08:27)
[2019-11-23] MEDS: Gabapentin 300 MG CAPSULE PO SCH ×2 (08:27→19:36)
[2019-11-23] MEDS: Metoprolol XL (24 HR) Succ 25 MG TAB.ER.24H PO SCH (08:27)
[2019-11-23] MEDS ORDERED: *HR* Midazolam HCl 2 MG/2 ML VIAL ONE (08:47)
[2019-11-23] MEDS ORDERED: *HR* FentaNYL (PF) 100 MCG/2 ML VIAL ONE (08:47)
[2019-11-23] MEDS: Insulin LISPRO 300 UNITS/3 ML VIAL SQ SCH ×4 (08:50→19:36)
[2019-11-23] MEDS: Budesonide/Formoterol 80/4.5 1 PUFF INH IH SCH ×2 (10:40→20:41)
[2019-11-23] MEDS ORDERED: 0.9 % Sodium Chloride 1,000 ML IVC SCH (13:15)
[2019-11-24 05:22] LABS: BUN/Creatinine Ratio 16 (6-26); Blood Urea Nitrogen 15 mg/dL (8-23); Calcium 8.5 mg/dL (8.6-10.3); Carbon Dioxide 23 mEq/L (23-29); Chloride 106 mEq/L (98-107); Glucose 117 mg/dL (70-105); Magnesium 1.9 mg/dL (1.6-2.6); Osmolality,Calculated 290 (280-300); Phosphorous 3.4 mg/dL (2.7-4.5); Potassium 3.9 mEq/L (3.5-5.1); Sodium 139 mEq/L (136-145); eGFR For African Americans > 60 (> 60); eGFR For Non-African Americans > 60 (> 60)
[2019-11-24] MEDS: Insulin LISPRO 300 UNITS/3 ML VIAL SQ SCH ×2 (07:51→11:37)
[2019-11-24] MEDS: Gabapentin 300 MG CAPSULE PO SCH (09:00)
[2019-11-24] MEDS ORDERED: Metoprolol XL (24 HR) Succ 25 MG TAB.ER.24H PO SCH (09:00)
[2019-11-24] MEDS: Spironolactone 25 MG TABLET PO SCH (09:00)
[2019-11-24] MEDS: Aspirin 81 MG TAB.CHEW PO SCH (09:00)
[2019-11-24] MEDS: Budesonide/Formoterol 80/4.5 1 PUFF INH IH SCH (10:03)
[2019-11-24] MEDS ORDERED: Metoprolol XL (24 HR) Succ 25 MG TAB.ER.24H PO ONE (13:00)
[2019-11-24 13:35] VITALS: BP 155/82
== END 2019-11-24 15:26 | disposition home or self-care (01) | DRG 247 ==
LOC: 3BNU → SUATTDRO 23:28
PROVIDERS: ADMIT Family Medicine; ATTEND Internal Medicine